=== PATIENT | male | born 1945 | race Caucasian/White ===

== ENCOUNTER 2022-12-11 06:24 | Day surgery (SDC) | payer OTHER ==
--- NOTE | 2022-12-09 18:45 | RAD REPORT ---
EXAM DESCRIPTION: Tian Single View12/09/2022 12:58 pm CLINICAL HISTORY: pre-op. Hypertension. COMPARISON: Chest Pa And Lat (2 Views) dated 09/05/2016 TECHNIQUE: Single view of the chest. FINDINGS: Stable blunting of the left costophrenic angle may relate to atelectasis, pleural or small er. Lungs otherwise clear. No pneumothorax or sizable effusion. The cardiomediastinal contours are un remarkable. IMPRESSION: No acute cardiopulmonary process. Stable findings as above.
--- NOTE | 2022-12-10 12:39 | EKG ---
Test Date: 2022-12-09 Test Time: 12:00:12 Envelope Machine Operator: LUCY MEASUREMENT RESULTS: Intervals: Rate: 53 OH: 250 QRSD: 90 QT: 426 QTc: 399 [place]: P: 59 OH: 250 QRS: 31 T: 45 INTERPRETIVE STATEMENTS: Sinus bradycardia with 1st degree AV block Septal infarct, age undetermined Abnormal ECG Compared to ECG 12/09/2022 11:57:23 First degree AV block now present Myocardial infarct finding now present Electronically Signed On 12-10-22 12:36:45 CDT by Aguila Parish
--- NOTE | 2022-12-10 12:39 | EKG ---
Test Date: 2022-12-09 Test Time: 11:57:23 Tariff Inspector: LUCY MEASUREMENT RESULTS: Intervals: Rate: 0 [place]: QRSD: 0 QT: 0 QTc: 0 [place]: P: [place]: QRS: 0 T: 0 INTERPRETIVE STATEMENTS: No QRS complexes found, no ECG analysis possible Compared to ECG 03/08/2008 14:55:06 Sinus rhythm no longer present Electronically Signed On 12-10-22 12:36:47 CDT by Aguila Parish
[2022-12-11] MEDS ORDERED: Ringers Lactate 1,000 ML IV ONE (06:55)
[2022-12-11] MEDS ORDERED: CEFAZOLIN SODIUM 2 GM/VIAL ONE (06:55)
[2022-12-11] MEDS ORDERED: SUGAMMADEX SODIUM 200 MG/2 ML VIAL IV ONE (07:17)
[2022-12-11] MEDS ORDERED: ROCURONIUM 50 MG/5 ML VIAL IV ONE (07:23)
[2022-12-11] MEDS ORDERED: LIDOCAINE 2% MPF 5 ML VIAL ONE (07:23)
[2022-12-11] MEDS ORDERED: FENTANYL CITR 100 MCG/2 ML ONE ×2 (07:23→08:13)
[2022-12-11] MEDS ORDERED: propofoL 200 MG/20 ML VIAL IV ONE (07:23)
[2022-12-11] MEDS ORDERED: GLYCOPYRROLATE 0.2 MG/ML SYR ONE ×2 (07:45→08:37)
[2022-12-11] MEDS ORDERED: EPHEDRINE SULF 50 MG/ML VIAL ONE (07:55)
[2022-12-11] MEDS ORDERED: ONDANSETRON 4 MG/2 ML VIAL ONE (08:12)
[2022-12-11] MEDS ORDERED: dexAMETHasone 10 MG/ML VIAL ONE (08:12)
--- NOTE | 2022-12-11 08:38 | P.OP ---
Date of Service: 12/11/22 Preop diagnosis: Right inguinal hernia-symptomatic Postop diagnosis: Same Procedure performed: Repair of right inguinal hernia Surgeon: Albino Lofton MD Bulk Mail Clerk: Radha MUÑOZ Estimated blood loss: Minimal Specimen: Cord lipoma, hernia sac Findings: As above Anesthesia: General Complications: None Drains: None Fluids and blood products: Nonapplicable Disposition: Recovery room Operative note: Patient brought to the OR and placed in supine position. General anesthesia begun. Patient prepped and draped in the usual sterile fashion. Marcaine 0.5% infiltrated in a field block fashion. 15 blade used to make a 4 cm oblique incision between the pubic tubercle and the anterior iliac superior spine. Subcutaneous tissue divided. Bleeding controlled cautery. Augustus's fascia identified and divided. Aponeurosis identified mobilized inferiorly to expose the shelving edge. Aponeurosis opened through the external ring. At the pubic tubercle, cord structures mobilized. Cord structures skeletonized. Lipoma identified and excised. Indirect sac identified and excised with 2-0 Prolene suture ligature and freehand tie. Specimen sent to pathology. Marlex mesh plug placed in the internal ring and secured with VersaTack stapler. Onlay mesh placed in the inguinal floor secured medially to the pubic tubercle, superior to the conjoined tendon, inferiorly to the shelving edge and laterally to each other. 2-0 Prolene used to close the aponeurosis. 3-0 chromic used to close Augustus's fascia. And 3-0 chromic used to close skin. Sterile dressing applied. Patient awakened and taken to recovery room in good general condition. CC: Dr. Veronica Lawrence's office
[2022-12-11] MEDS ORDERED: NEOSTIGMINE 1 MG/ML -10 ML VIAL ONE (08:39)
[2022-12-11] MEDS ORDERED: HYDROCODONE/APAP 7.5/325 MG TAB PO PRN (08:40)
[2022-12-11] MEDS ORDERED: Mastisol Adhesive Liq ONE (08:42)
[2022-12-11 09:38] VITALS: BP 124/50; TEMP 97.8; O2SAT 97
[2022-12-11] MEDS ORDERED: HYDROCODONE/APAP 7.5/325 MG TAB ONE (10:46)
[2022-12-11] MEDS ORDERED: TAMSULOSIN 0.4 MG SR CAP ONE (12:44)
== END 2022-12-11 12:38 | disposition home or self-care (01) ==
LOC: OR 06:24
PROVIDERS: ATTEND Surgery
PROC: 0YU50JZ Supplement Right Inguinal Region with Synthetic Substitute, Open Approach (ICD-10-PCS; principal; 2022-12-11 07:30)
DX: K40.90 Unilateral inguinal hernia, without obstruction or gangrene, not specified as recurrent (principal); I10 Essential (primary) hypertension; E78.00 Pure hypercholesterolemia, unspecified; F17.210 Nicotine dependence, cigarettes, uncomplicated
CPT/HCPCS: 93005 ×2; 88302; 71045; 49505; J2704; J2710; J2001; J3010 ×2; J1100; J2405; J7120